=== PATIENT | female | born 1940 | race Two or more races ===

== ENCOUNTER → 2017-10-02 | Outpatient (CLI) | payer OTHER ==
[~2017-10-02] MED LIST: IBUPROFEN800 MG PO; PAROXETINE HCL10 MG; PRILOSEC10 MG; SYNTHROID50 MCG
== END | disposition home or self-care (01) ==
LOC: MAMO-SONO 09-22 08:45
DX: Z12.31 Encounter for screening mammogram for malignant neoplasm of breast (principal); Z87.898 Personal history of other specified conditions; N64.4 Mastodynia; R19.00 Intra-abdominal and pelvic swelling, mass and lump, unspecified site

== ENCOUNTER 2017-11-19 12:03 | Emergency (ER) | payer OTHER ==
[~2017-11-19] VITALS: Ht 157.5 cm; Wt 83.9 kg
[2017-11-19] MEDS ORDERED: GLUCOTROL XL5 MG (12:25)
[2017-11-19] MEDS ORDERED: LEVAQUIN500 MG PO (13:38)
[2017-11-19] MEDS ORDERED: MUPIROCIN22 GM TOP (13:38)
== END 2017-11-19 13:54 | disposition home or self-care (01) ==
LOC: ER 12:03
DX: S61.422A Laceration with foreign body of left hand, initial encounter (principal); L08.89 Other specified local infections of the skin and subcutaneous tissue; B96.89 Other specified bacterial agents as the cause of diseases classified elsewhere; W45.8XXA Other foreign body or object entering through skin, initial encounter; Y93.01 Activity, walking, marching and hiking; Y92.480 Sidewalk as the place of occurrence of the external cause; Y99.8 Other external cause status

== ENCOUNTER → 2018-11-11 | Outpatient (CLI) | payer OTHER ==
[~2018-11-11] MED LIST changes: +GLUCOTROL XL5 MG; +LEVAQUIN500 MG PO; +MUPIROCIN22 GM TOP
== END | disposition home or self-care (01) ==
LOC: MAMO-SONO 09:15
DX: N60.11 Diffuse cystic mastopathy of right breast (principal); N60.12 Diffuse cystic mastopathy of left breast; Z12.31 Encounter for screening mammogram for malignant neoplasm of breast; Z87.898 Personal history of other specified conditions

== ENCOUNTER 2019-02-04 08:55 | Day surgery (SDC) | payer OTHER ==
[~2019-02-04 08:55] MED LIST changes: +GLIMEPIRIDE2 MG PO; +JARDIANCE10 MG PO; +PAROXET PO; +PROTONIX40 M1 PO; +SYNTH PO
[2019-02-04] MEDS ORDERED: PERCOCET 5-3251 EACH PO (12:30)
[2019-02-04] MEDS ORDERED: RECTICARE30 GM TOP (12:30)
== END 2019-02-04 18:30 | disposition home or self-care (01) ==
LOC: CIR.AMB 08:55
DX: C20 Malignant neoplasm of rectum (principal)

== ENCOUNTER 2019-03-11 09:01 | Outpatient (CLI) | payer OTHER ==
[~2019-03-11 09:01] MED LIST changes: +PERCOCET 5-3251 EACH PO; +RECTICARE30 GM TOP
== END 2019-03-11 09:03 | disposition home or self-care (01) ==
LOC: TOM 09:01
DX: K59.04 Chronic idiopathic constipation (principal); K64.2 Third degree hemorrhoids; C20 Malignant neoplasm of rectum
CPT/HCPCS: 74177; Q9965

== ENCOUNTER 2019-04-08 08:51 | Outpatient (CLI) | payer OTHER | END 2019-04-08 08:54 | disposition home or self-care (01) | LOC: TOM 08:51 | DX: D12.6 Benign neoplasm of colon, unspecified (principal) | CPT/HCPCS: 71270; Q9965 ==

== ENCOUNTER 2019-07-06 10:18 | Outpatient (CLI) | payer OTHER | END 2019-07-06 10:30 | disposition home or self-care (01) | LOC: NUCLEAR 10:18 | DX: M81.0 Age-related osteoporosis without current pathological fracture (principal) ==

== ENCOUNTER → 2020-09-12 12:53 | Outpatient (CLI) | payer OTHER | END | disposition home or self-care (01) | LOC: LAB 12:53 | PROVIDERS: ATTEND Radiology Diagnostic Radiology | DX: N20.0 Calculus of kidney (principal) ==

== ENCOUNTER 2020-09-26 09:56 | Outpatient (CLI) | payer OTHER | END 2020-09-26 10:10 | disposition home or self-care (01) | LOC: TOM 09:56 | PROVIDERS: ATTEND Specialist | DX: N83.202 Unspecified ovarian cyst, left side (principal); N95.8 Other specified menopausal and perimenopausal disorders; N20.2 Calculus of kidney with calculus of ureter | CPT/HCPCS: 74178; Q9965 ==

== ENCOUNTER 2021-04-23 11:24 | Outpatient (CLI) | payer OTHER | END 2021-04-23 11:34 | disposition home or self-care (01) | LOC: MAMO-SONO 11:24 | PROVIDERS: ATTEND Specialist | DX: R92.1 Mammographic calcification found on diagnostic imaging of breast (principal); N60.11 Diffuse cystic mastopathy of right breast; N60.12 Diffuse cystic mastopathy of left breast; Z12.31 Encounter for screening mammogram for malignant neoplasm of breast ==

== ENCOUNTER 2021-10-10 11:54 | Outpatient (CLI) | payer OTHER | END 2021-10-10 12:01 | disposition home or self-care (01) | LOC: RAD 11:54 | PROVIDERS: ATTEND Orthopaedic Surgery Orthopaedic Surgery of the Spine | DX: M54.9 Dorsalgia, unspecified (principal) ==

== ENCOUNTER → 2021-10-29 | Outpatient (CLI) | payer OTHER | END | disposition home or self-care (01) | LOC: MRI 09:44 | PROVIDERS: ATTEND Anesthesiology | DX: N60.11 Diffuse cystic mastopathy of right breast (principal); N60.12 Diffuse cystic mastopathy of left breast; M54.17 Radiculopathy, lumbosacral region; M54.30 Sciatica, unspecified side | CPT/HCPCS: 72148 ==

== ENCOUNTER 2021-11-14 11:05 | Outpatient (CLI) | payer OTHER | END 2021-11-14 11:35 | disposition home or self-care (01) | LOC: MAMO-SONO 11:05 → SONOGRAMA 11:05 → MAMO-SONO 11:35 | PROVIDERS: ATTEND Specialist | DX: N60.11 Diffuse cystic mastopathy of right breast (principal); N60.12 Diffuse cystic mastopathy of left breast ==

== ENCOUNTER 2022-01-09 11:36 | Outpatient (CLI) | payer OTHER | END 2022-01-09 11:37 | disposition home or self-care (01) | LOC: NUCLEAR 11:36 | PROVIDERS: ATTEND Specialist | DX: M81.0 Age-related osteoporosis without current pathological fracture (principal) ==

== ENCOUNTER 2022-07-11 06:05 | Day surgery (SDC) | payer OTHER ==
[~2022-07-11] VITALS: Ht 157.5 cm; Wt 81.6 kg
[~2022-07-11 06:05] MED LIST changes: +FARXIGA10 MG PO; +GLIMEPIRIDE4 M1 PO; +SYNTHROID88 MCG PO
[2022-07-11] MEDS ORDERED: PERCOCET 5-3251 EACH PO ×2 (08:36)
[2022-07-11] MEDS ORDERED: RECTICARE30 GM TOP ×2 (08:37)
== END 2022-07-11 15:25 | disposition home or self-care (01) ==
LOC: CIR.AMB 06:05
PROVIDERS: ATTEND Surgery
DX: C20 Malignant neoplasm of rectum (principal); K64.2 Third degree hemorrhoids; K59.04 Chronic idiopathic constipation; E11.9 Type 2 diabetes mellitus without complications; E03.9 Hypothyroidism, unspecified; Z79.84 Long term (current) use of oral hypoglycemic drugs; Z20.822 Contact with and (suspected) exposure to COVID-19

== ENCOUNTER 2022-07-16 14:15 | Emergency (ER) | payer OTHER ==
[~2022-07-16] VITALS: Ht 157.5 cm; Wt 81.6 kg
== END 2022-07-17 00:20 | disposition home or self-care (01) ==
LOC: ER 14:15
DX: K59.00 Constipation, unspecified (principal)

== ENCOUNTER 2022-08-06 08:05 | Outpatient (CLI) | payer OTHER | END 2022-08-06 08:12 | disposition home or self-care (01) | LOC: TOM 08:05 | PROVIDERS: ATTEND Surgery | DX: K59.04 Chronic idiopathic constipation (principal); K64.2 Third degree hemorrhoids; C20 Malignant neoplasm of rectum | CPT/HCPCS: 71260; 74177; Q9965 ==

== ENCOUNTER 2022-08-19 07:56 | Outpatient (CLI) | payer OTHER | END 2022-08-19 07:57 | disposition home or self-care (01) | LOC: NUCLEAR 07:56 | PROVIDERS: ATTEND Internal Medicine Hematology & Oncology | DX: C20 Malignant neoplasm of rectum (principal); R59.0 Localized enlarged lymph nodes | CPT/HCPCS: 78815; A9552 ==

== ENCOUNTER 2022-11-27 11:28 | Emergency (ER) | payer OTHER ==
[~2022-11-27] VITALS: Ht 157.5 cm; Wt 81.6 kg
[2022-11-27] MEDS ORDERED: FAMCICLOVIR500 MG PO (13:48)
== END 2022-11-27 13:56 | disposition home or self-care (01) ==
LOC: ER 11:28
DX: B02.9 Zoster without complications (principal)

== ENCOUNTER 2022-12-27 12:15 | Emergency (ER) | payer OTHER ==
[~2022-12-27] VITALS: Ht 157.5 cm; Wt 81.6 kg
[~2022-12-27 12:15] MED LIST changes: +FAMCICLOVIR500 MG PO
[2022-12-27] MEDS ORDERED: CARAFATE1 GM PO (21:00)
== END 2022-12-27 21:16 | disposition home or self-care (01) ==
LOC: ER 12:15
DX: R10.84 Generalized abdominal pain (principal)

== ENCOUNTER 2023-02-19 10:04 | Outpatient (CLI) | payer OTHER ==
[~2023-02-19 10:04] MED LIST changes: +CARAFATE1 GM PO
== END 2023-02-19 10:14 | disposition home or self-care (01) ==
LOC: MAMO-SONO 10:04
PROVIDERS: ATTEND Specialist
DX: N60.11 Diffuse cystic mastopathy of right breast (principal); N60.12 Diffuse cystic mastopathy of left breast; Z12.31 Encounter for screening mammogram for malignant neoplasm of breast

== ENCOUNTER 2023-07-07 08:25 | Outpatient (CLI) | payer OTHER | END 2023-07-07 08:29 | disposition home or self-care (01) | LOC: NUCLEAR 08:25 | PROVIDERS: ATTEND Internal Medicine Hematology & Oncology | DX: C20 Malignant neoplasm of rectum (principal); C77.5 Secondary and unspecified malignant neoplasm of intrapelvic lymph nodes | CPT/HCPCS: 78815; A9552 ==

== ENCOUNTER 2023-09-19 08:25 | Outpatient (CLI) | payer OTHER | END 2023-09-19 08:26 | disposition home or self-care (01) | LOC: NUCLEAR 08:25 | PROVIDERS: ATTEND Surgery | DX: R19.4 Change in bowel habit (principal); K64.2 Third degree hemorrhoids; C20 Malignant neoplasm of rectum | CPT/HCPCS: 78816; A9552 ==

== ENCOUNTER 2024-04-08 07:34 | Outpatient (CLI) | payer OTHER | END 2024-04-08 07:35 | disposition home or self-care (01) | LOC: NUCLEAR 07:34 | PROVIDERS: ATTEND Surgery | DX: C20 Malignant neoplasm of rectum (principal) | CPT/HCPCS: 78816; A9552 ==

== ENCOUNTER 2024-07-22 09:00 | Outpatient (CLI) | payer OTHER | END 2024-07-22 09:15 | disposition home or self-care (01) | LOC: MAMO-SONO 09:00 | PROVIDERS: ATTEND Specialist | DX: N60.11 Diffuse cystic mastopathy of right breast (principal); N60.12 Diffuse cystic mastopathy of left breast; R10.2 Pelvic and perineal pain; Z12.31 Encounter for screening mammogram for malignant neoplasm of breast ==

== ENCOUNTER 2024-08-10 11:52 | Outpatient (CLI) | payer OTHER | END 2024-08-10 11:53 | disposition home or self-care (01) | LOC: NUCLEAR 11:52 | PROVIDERS: ATTEND Specialist | DX: M81.0 Age-related osteoporosis without current pathological fracture (principal) ==

== ENCOUNTER 2024-09-06 09:18 | Outpatient (CLI) | payer OTHER | END 2024-09-06 09:25 | disposition home or self-care (01) | LOC: MRI 09:18 | PROVIDERS: ATTEND Specialist | DX: R19.00 Intra-abdominal and pelvic swelling, mass and lump, unspecified site (principal) | CPT/HCPCS: 72197; Q9965 ==

== ENCOUNTER 2024-11-10 08:52 | Outpatient (CLI) | payer OTHER | END 2024-11-10 08:56 | disposition home or self-care (01) | LOC: SONOGRAMA 08:52 | DX: N83.202 Unspecified ovarian cyst, left side (principal) ==